=== PATIENT | male | born 1950 | race Caucasian/White ===

== ENCOUNTER → 2017-04-27 | Day surgery (SDC) | payer OTHER ==
[~2017-04-27] MED LIST: ACETAMINOPHEN 1000 MG/100 ML 100 ML IV ONE; ACETAMINOPHEN/HYDROcodone 325 MG/5 MG TAB ONE; BUPIVACAINE/EPINEPHRINE 0.25% PF 30 ML VIAL INFIL ONE; KETOROLAC TROMETHAMINE 30 MG/ML (IVP) VIAL IV PUSH ONE; LACTATED RINGER'S 1000 ML INJ 1,000 ML ONE; MEPERIDINE HCL 25 MG/ML VIAL ONE; ONDANSETRON HCL 4 MG/2 ML VIAL IV PUSH ONE; PROPOFOL 200 MG/20 ML AMP IV ONE; ceFAZolin INJ 1,000 MG VIAL ONE
--- NOTE | 2017-04-27 12:08 | TN ---
cc: SHIRIN TANG M.D., JOSEPH D. M.D. DATE OF SURGERY: 04/27/2017 PREOPERATIVE DIAGNOSIS 1. Bilateral inguinal hernia. 2. Umbilical hernia. POSTOPERATIVE DIAGNOSIS 1. Bilateral inguinal hernia. 2. Umbilical hernia. PROCEDURE Laparoscopic repair of bilateral inguinal hernia with mesh and repair of umbilical hernia. ANESTHESIA General. SURGEON Dr. Obando. CANDLEMAKING LABORER: Aixa Aisha PK The WAREHOUSE ASSISTANT was present from beginning to the end of the case assisting in all portions of the procedure. It was necessary to have this individual in the room to assist in the above surgical procedure. The surgical procedure was assisted by the WAREHOUSE ASSISTANT. The WAREHOUSE ASSISTANT presence was necessary throughout the case for appropriate retraction, dissection, visualization, and resection of the important anatomical structures during the surgical procedure. The WAREHOUSE ASSISTANT was assisting throughout the entirety of the operation. The skill set of the WAREHOUSE ASSISTANT is medically and surgically necessary to safely complete the surgical procedure. During the surgical case the operating room medical or surgical instrument maker was working instrument table and passing instruments to the attending surgeon and WAREHOUSE ASSISTANT The WAREHOUSE ASSISTANT was directly assisting the operating surgeon and involved in the technical aspects of the surgical case. INDICATION The patient is a pleasant 66-year-old gentleman who [place] inguinal hernias and umbilical hernia. Plans were made for repair. DETAILS OF PROCEDURE The patient was taken to the operating room and placed in the supine position. After anesthesia a timeout was done. He is prepped and draped with Betadine. We make an incision just below the umbilicus just a little bit off to the left in a vertical fashion. We dissect down to the fascia identifying the anterior fascia; this is incised. We dissect into preperitoneal space and then place a dissecting balloon in the preperitoneal space. This is pumped up with 40 pumps of the balloon under videoscopic surveillance. This was removed and then the balloon trocar is placed and the preperitoneal space insufflated with CO2 to 14 mmHg pressure. Two other working ports are placed, one above the pubic tubercle and one in between the two previously placed ports. We then direct our attention to the left side first. A direct defect is seen. The cord structures are identified. The hernia is completely reduced. We create a posterior window. A 3 x 6 piece of mesh is then cut to size with a slit for accommodating the cord structures. This was placed through the umbilical port site and secured to the pubic tubercle, Casey's ligament and out laterally avoiding the cutaneous nerves. The tails that had been fashioned are secured to themselves. This is all done with the tacking device. There is a slight gap overlying the tails and this is where the defect was so a second piece of polypropylene mesh is placed on top of this to further buttress the repair and is tacked to the previous mesh and the anterior abdominal wall. We then direct our attention to the right side. This is an indirect defect which is completely reduced. It looks a little bigger than the left side. Once we get the defect completely reduced a posterior window is made on the cord structures. A similar cut piece of mesh is then placed and secured to the pubic tubercle and Casey's ligament, and tails are then secured to themselves. We further buttress the tails with a 3 x 4 piece of mesh and secure it to the previously placed mesh and the anterior abdominal wall to further buttress this repair. We then check our dissection site. There is excellent hemostasis. 10 cc of Marcaine is placed in the preperitoneal space for post-op pain control. The trocars are removed. We dissect underneath the umbilical stalk identifying the umbilical hernia. The defect measures about a centimeter in size. This is simply closed with a 0 Ethibond at the fascial layer that appears quite strong. Once this is closed we then close the fascial defect we made for our dissection. This is re-approximated with Ethibond as well. The deep tissue is then re-approximated with 3-0 Vicryl and the skin is closed with 4-0 Monocryl. Steri-Strips are applied. Sterile bandage applied. The patient tolerated the procedure well and had no immediate post-op complications. MD EMMA Mayo/GERA /11:36 AM /11:51 AM BETI
== END | disposition home or self-care (01) ==
LOC: ESDC 08:17
PROVIDERS: ATTEND Surgery
DX: K40.20 Bilateral inguinal hernia, without obstruction or gangrene, not specified as recurrent (principal); K42.9 Umbilical hernia without obstruction or gangrene
CPT/HCPCS: 00750; 00840; 49585; 49650; C1727; C1781; J0131; J0690; J1885; J2405; J7120; J2175; J3010